=== PATIENT | female | born 1965 | race American Indian/Alaskan Native ===

== ENCOUNTER 2021-11-16 16:00 | Emergency (ER) | payer SELFPAY ==
[2021-11-16] MEDS ORDERED: ALUM-MAG HYDROXIDE-SIMETHICONE 200-200-20MG/5ML ORAL LIQD 30 ML PO ONE (17:56)
[2021-11-16] MEDS ORDERED: FAMOTIDINE 20 MG/2 ML INJ IV ONE (17:56)
[2021-11-16] MEDS ORDERED: SODIUM CHLORIDE 0.9% 1000 ML 1,000 ML IV ONE (17:56)
[2021-11-16] MEDS ORDERED: ONDANSETRON 4 MG/2 ML INJ IV ONE (17:56)
[2021-11-16] MEDS ORDERED: LIDOCAINE VISCOUS 2% 15 ML ORAL LIQD PO ONE (17:57)
[2021-11-16 18:32] LABS: Basophils % (Auto) 0.7 % (0.0-1.8); Eosinophils # (Auto) 0.3 K/mm3 (0.0-0.4); Eosinophils % (Auto) 6.6 % (0.0-4.3); Hematocrit 36.5 % (30.3-42.9); Hemoglobin 12.5 gm/dl (10.1-14.3); Lymphocytes # (Auto) 1.7 K/mm3 (1.2-5.4); Lymphocytes % (Auto) 38.8 % (13.4-35.0); Mean Corpuscular HGB Conc 34 % (30-34); Mean Corpuscular Volume 83 fl (79-97); Monocytes # (Auto) 0.4 K/mm3 (0.0-0.8); Monocytes % (Auto) 8.2 % (0.0-7.3); Platelet Count 179 K/mm3 (140-440); Red Blood Count 4.42 M/mm3 (3.65-5.03); Red Cell Distribution Width 13.9 % (13.2-15.2)
--- NOTE | 2021-11-16 18:34 | Emergency Department Report ---
ED Abdominal Pain HPI - General Chief Complaint: Abdominal Pain Stated Complaint: STOMACH PAIN Time Seen by Provider: 11/16/21 17:47 Source: patient, family (sudanese speaking daughter at bedside) Mode of arrival: Ambulatory Limitations: Language Barrier (pt does speak some sudanese) - History of Present Illness Initial Comments: 56-year-old female past medical history of gastric ulcers presents to the hospital with complaints worsening and chronic epigastric pain and pain with swallowing. Pain is worse when lying down at night. Patient states she was originally diagnosed with gastric ulcers in [place] 2003. Approximately 5 years ago she had endoscopy during the hospitalization in [place]. She is not currently taking any H2 blockers or PPIs. Complains of severe pain with swallowing resulting in decreased p.o. intake. Patient is able to tolerate liquids and pures better than solids but is still having difficulty secondary to pain. No reports of nausea, vomiting, or hematemesis. She states she always has dark stool because she eats a lot of green leafy vegetables. No previous abdominal surgeries reported. She just moved here from [place] 3 weeks ago Severity scale (0 -10): 9 - Related Data Previous Rx's Medication Instructions Recorded Last Taken Type Esomeprazole Magnesium [Nexium 20 mg PO DAILY #30 tab 11/16/21 Unknown Rx 24Hr] Mag Hydrox/Aluminum Hyd/Simeth 20 ml PO QID PRN #1 bottle 11/16/21 Unknown Rx [Maalox Advanced Suspension] Allergies Allergy/AdvReac Type Severity Reaction Status Date / Time No Known Allergies Allergy Unverified 11/16/21 16:05 ED Review of Systems ROS: Stated complaint: STOMACH PAIN Other details as noted in HPI Comment: All other systems reviewed and negative ED Past Medical Hx - Past Medical History Previous Medical History?: Yes Additional medical history: Gastric ulcers, Vaginal delivery x 7 - Surgical History Past Surgical History?: No - Medications Home Medications: Home Medications Medication Instructions Recorded Confirmed Last Taken Type Esomeprazole Magnesium [Nexium 20 mg PO DAILY #30 tab 11/16/21 Unknown Rx 24Hr] Mag Hydrox/Aluminum Hyd/Simeth 20 ml PO QID PRN #1 bottle 11/16/21 Unknown Rx [Maalox Advanced Suspension] ED Physical Exam - General Limitations: No Limitations - Other Other exam information: General: No acute distress Head: Atraumatic Eyes: normal appearance ENT: Moist mucous membranes Neck: Normal appearance, no midline tenderness Chest: Clear to auscultation bilaterally CV: Regular rate and rhythm Abdomen: Soft, normal bowel sounds, epigastric tenderness, nondistended, no rebound or guarding Back: Normal inspection Extremity: Normal inspection, full range of motion Neuro: Alert O x 3, no facial asymmetry, speech clear, no gross motor sensory deficit Psych: Appropriate behavior Skin: No rash ED Course Vital Signs 11/16/21 11/16/21 16:06 19:33 Temperature 97.8 F Pulse Rate 73 63 Respiratory 20 18 Rate Blood Pressure 155/76 [Left] Blood Pressure 135/77 [Right] O2 Sat by Pulse 100 96 Oximetry ED Medical Decision Making - Lab Data Result diagrams: 11/16/21 18:20 11/16/21 18:20 Lab Results 11/16/21 11/16/21 Range/Units 18:20 18:20 WBC 4.4 L (4.5-11.0) K/mm3 RBC 4.42 (3.65-5.03) M/mm3 Hgb 12.5 (10.1-14.3) gm/dl Hct 36.5 (30.3-42.9) % MCV 83 (79-97) fl MCH 28 (28-32) pg MCHC 34 (30-34) % RDW 13.9 (13.2-15.2) % Plt Count 179 (140-440) K/mm3 Lymph % (Auto) 38.8 H (13.4-35.0) % [place] % (Auto) 8.2 H (0.0-7.3) % Eos % (Auto) 6.6 H (0.0-4.3) % Baso % (Auto) 0.7 (0.0-1.8) % Lymph # (Auto) 1.7 (1.2-5.4) K/mm3 [place] # (Auto) 0.4 (0.0-0.8) K/mm3 Eos # (Auto) 0.3 (0.0-0.4) K/mm3 Baso # (Auto) 0.0 (0.0-0.1) K/mm3 Seg Neutrophils % 45.7 (40.0-70.0) % Seg Neutrophils # 2.0 (1.8-7.7) K/mm3 Sodium 140 (137-145) mmol/L Potassium 4.3 (3.6-5.0) mmol/L Chloride 101.9 (98-107) mmol/L Carbon Dioxide 29 (22-30) mmol/L Anion Gap 13 mmol/L BUN 15 (7-17) mg/dL Creatinine 1.0 (0.6-1.2) mg/dL Estimated GFR 57 ml/min BUN/Creatinine Ratio 15 % Glucose 86 (65-100) mg/dL Calcium 9.4 (8.4-10.2) mg/dL Total Bilirubin 0.20 (0.1-1.2) mg/dL AST 19 (5-40) units/L ALT 21 (7-56) units/L Alkaline Phosphatase 75 (35-129) units/L Total Protein 6.6 (6.3-8.2) g/dL Albumin 4.4 (3.9-5) g/dL Albumin/Globulin Ratio 2.0 % Lipase 45 (13-60) units/L - Medical Decision Making pt presents with epigastric pain and pain with swallowing (acute on chronic). feel better with ed tx of pepcid, maalox, lidocaine, and IVF. Dr Julian assisted with translation to explain diagnosis and plan for d/c with meds and f/u - Differential Diagnosis ulcer, gerd, esophageal spasm, Critical Care Time: No Critical care attestation.: If time is entered above; I have spent that time in minutes in the direct care of this critically ill patient, excluding procedure time. ED Disposition Clinical Impression: GERD (gastroesophageal reflux disease) Disposition: 01 HOME / SELF CARE / HOMELESS Is pt being admited?: No Does the pt Need Aspirin: No Condition: Stable Instructions: Abdominal Pain (ED), Gastroesophageal Reflux Disease, Adult, [id number]-[id number] Additional Instructions: Take the medication as prescribed. Follow-up with your doctor or doctor/clinic provided. Return if symptoms worsen as indicated by your discharge instructions. Prescriptions: Mag Hydrox/Aluminum Hyd/Simeth [Maalox Advanced Suspension] 20 ml PO QID PRN #1 bottle PRN Reason: Indigestion/Constipation Esomeprazole Magnesium [Nexium 24Hr] 20 mg PO DAILY #30 tab Referrals: [facility] [Provider Group] - 3-5 Days Time of Disposition: 21:09
[2021-11-16 18:54] LABS: Albumin 4.4 g/dL (3.9-5); Calcium 9.4 mg/dL (8.4-10.2)
[2021-11-16 21:43] VITALS: BP 150/77
== END 2021-11-16 21:49 | disposition home or self-care (01) ==
LOC: ED 16:00
DX: K21.9 Gastro-esophageal reflux disease without esophagitis (principal); Z79.899 Other long term (current) drug therapy
CPT/HCPCS: 36415; 80053; 83690; 85025; 96361; 96374; 96375; 99283; J2405; J3490; J7030

== ENCOUNTER 2022-03-15 15:16 | Emergency (ER) | payer SELFPAY ==
[2022-03-15 17:08] VITALS: BP 140/80
[2022-03-16] MEDS ORDERED: ACETAMINOPHEN 325 MG TAB PO ONE (01:16)
--- NOTE | 2022-03-16 01:22 | Emergency Department Report ---
ED Back Pain/Injury HPI - General Chief Complaint: Back Pain/Injury Stated Complaint: LEG PAIN, WAIST PAIN Time Seen by Provider: 03/16/22 01:07 Source: patient Limitations: No Limitations - History of Present Illness Initial Comments: Patient is a 56-year-old female who presents with low back pain for the last 2 months that is radiating to the bilateral lower extremities left greater than right. Denies any paresthesias or weakness but states the pain has been increasing over that time. And has become 8 out of 10 at this time. She has not been taking anything [id number] for it. Denies paresthesias or weakness of the extremities loss of continence of bladder or bowel. No abdominal pain. No urinary symptoms. Onset/Timin -: Gradual, month(s) Similar Symptoms Previously: No Radiation: left leg, right leg Severity: moderate Severity scale (0 -10): 8 Quality: stabbing Consistency: constant (With increases and decreases in severity) Improves With: none Worsens With: none (Denies trauma) Context: while lifting (Denies trauma but states that lifting bothers it.) Associated Symptoms: difficulty walking (Secondary to pain). denies: confusion, weakness, chest pain, numbness, cough, difficulty urinating, diaphoresis, incontinence, fever/chills, constipation, headaches, abdominal pain, loss of appetite, malaise, nausea/vomiting, rash, seizure, shortness of breath, syncope Treatments Prior to Arrival: other (None) - Related Data Previous Rx's Medication Instructions Recorded Last Taken Type Esomeprazole Magnesium [Nexium 20 mg PO DAILY #30 tab 11/16/21 Unknown Rx 24Hr] Mag Hydrox/Aluminum Hyd/Simeth 20 ml PO QID PRN #1 bottle 11/16/21 Unknown Rx [Maalox Advanced Suspension] Cyclobenzaprine [Flexeril 10 MG 10 mg PO HS PRN #10 tab 03/16/22 Unknown Rx TAB] Diclofenac 1% [Diclofenac 1% 20 applic TP BID #1 tube 03/16/22 Unknown Rx topical gel] Allergies Allergy/AdvReac Type Severity Reaction Status Date / Time No Known Allergies Allergy Verified 03/15/22 17:05 ED Review of Systems ROS: Stated complaint: LEG PAIN, WAIST PAIN Other details as noted in HPI Comment: Unobtainable due to pts medical conditions Constitutional: denies: chills, fever Eyes: denies: eye discharge ENT: denies: ear pain, throat pain Respiratory: denies: cough, shortness of breath Cardiovascular: denies: chest pain, palpitations, dyspnea on exertion, edema Endocrine: denies: excessive sweating, intolerance to cold, intolerance to heat, unexplained weight gain, unexplained weight loss Gastrointestinal: denies: abdominal pain, nausea, vomiting, diarrhea, constipation Genitourinary: denies: urgency, dysuria, frequency, hematuria Musculoskeletal: as per HPI Skin: denies: rash Neurological: denies: headache, weakness, numbness, paresthesias, confusion, abnormal gait, vertigo Psychiatric: denies: anxiety, depression Hematological/Lymphatic: denies: easy bleeding, easy bruising ED Past Medical Hx - Past Medical History Hx GERD: Yes Additional medical history: Gastric ulcers, Vaginal delivery x 7 - Family History Family history: no significant - Social History Smoking Status: Never Smoker - Medications Home Medications: Home Medications Medication Instructions Recorded Confirmed Last Taken Type Esomeprazole Magnesium [Nexium 20 mg PO DAILY #30 tab 11/16/21 Unknown Rx 24Hr] Mag Hydrox/Aluminum Hyd/Simeth 20 ml PO QID PRN #1 bottle 11/16/21 Unknown Rx [Maalox Advanced Suspension] Cyclobenzaprine [Flexeril 10 MG 10 mg PO HS PRN #10 tab 03/16/22 Unknown Rx TAB] Diclofenac 1% [Diclofenac 1% 20 applic TP BID #1 tube 03/16/22 Unknown Rx topical gel] ED Physical Exam - General Limitations: No Limitations General appearance: alert, in no apparent distress - Head Head exam: Present: atraumatic, normocephalic - Eye Eye exam: Present: normal appearance. Absent: scleral icterus, conjunctival injection - ENT ENT exam: Present: mucous membranes moist - Neck Neck exam: Present: normal inspection, full ROM. Absent: tenderness - Respiratory Respiratory exam: Present: normal lung sounds bilaterally. Absent: respiratory distress, wheezes, rales, rhonchi - Cardiovascular Cardiovascular Exam: Present: regular rate, normal rhythm, normal heart sounds - GI/Abdominal GI/Abdominal exam: Present: soft, normal bowel sounds. Absent: distended, tenderness - Extremities Exam Extremities exam: Present: normal inspection, full ROM, normal capillary refill. Absent: tenderness, pedal edema, calf tenderness - Back Exam Back exam: Present: normal inspection, full ROM, tenderness (Lumbosacral area diffusely and SI joints.). Absent: CVA tenderness (R), CVA tenderness (L) - Neurological Exam Neurological exam: Present: alert, oriented X3, CN II-XII intact, normal gait, motor sensory deficit, reflexes normal - Psychiatric Psychiatric exam: Present: normal affect, normal mood - Skin Skin exam: Present: warm, dry, intact ED Course Vital Signs 03/15/22 03/16/22 17:07 01:40 Temperature 98.1 F Pulse Rate 88 Respiratory 20 16 Rate Blood Pressure 140/80 [Right] O2 Sat by Pulse 100 Oximetry ED Medical Decision Making - Radiology Data Radiology results: image reviewed [facility] [address] [place] [address] XRay Report Signed Patient: SADIQ STEVENS MR# : [id number] : [id number] Acct:[id number] Age/Sex: 56 / F ADM Date: 03/15/22 Loc: ED Attending Dr: Ordering Physician: LISET RYAN Date of Service: 03/16/22 Procedure(s): XR spine lumbosacral 2-3V Accession Number(s): [id number] cc: LISET RYAN Fluoro Time In Minutes: LUMBAR SPINE 2 VIEWS INDICATION: Back pain. COMPARISON: No relevant prior imaging study available. FINDINGS: VERTEBRAE: No acute fracture. Normal alignment. DISC SPACES: No significant abnormality. FACET JOINTS: No significant abnormality. SOFT TISSUES: No significant abnormality. ADDITIONAL FINDINGS: No additional significant findings. IMPRESSION: 1. No acute findings. Signer Name: Kike Li MD Signed: 03/16/2022 2:25 AM Workstation Name: [id number] Transcribed By: MN Dictated By: Kike Li MD Electronically Authenticated By: Kike Li MD Signed Date/Time: 03/16/22224 DD/ 3 TD/TT: Print - Medical Decision Making New onset nontraumatic low back pain in a 56-year-old. X-ray performed mostly to rule out metastatic disease and there is no evidence of same. We will treat as soft tissue injury with anti-inflammatories muscle relaxers and close follow- up. Critical care attestation.: If time is entered above; I have spent that time in minutes in the direct care of this critically ill patient, excluding procedure time. ED Disposition Clinical Impression: Lumbar strain Disposition: 01 HOME / SELF CARE / HOMELESS Is pt being admited?: No Condition: Stable Instructions: Lumbar Sprain, Back Injury Prevention Additional Instructions: Anti-inflammatories muscle relaxers. Ice alternating with heat. Follow-up with primary care if not improving in 3 to 5 days. Prescriptions: Diclofenac 1% [Diclofenac 1% topical gel] 20 applic TP BID #1 tube Cyclobenzaprine [Flexeril 10 MG TAB] 10 mg PO HS PRN #10 tab PRN Reason: Spasms Referrals: ANMOL CHUN MD [Primary Care Provider] - 3-5 Days PAO FRY MD [Staff Physician] - 3-5 Days
--- NOTE | 2022-03-16 02:29 | XRay Report ---
LUMBAR SPINE 2 VIEWS INDICATION: Back pain. COMPARISON: No relevant prior imaging study available. FINDINGS: VERTEBRAE: No acute fracture. Normal alignment. DISC SPACES: No significant abnormality. FACET JOINTS: No significant abnormality. SOFT TISSUES: No significant abnormality. ADDITIONAL FINDINGS: No additional significant findings. IMPRESSION: 1. No acute findings. Signer Name: Kike iL MD Signed: 03/16/2022 2:25 AM Workstation Name: [id number]
== END 2022-03-16 04:44 | disposition home or self-care (01) ==
LOC: ED 15:16
DX: S39.012A Strain of muscle, fascia and tendon of lower back, initial encounter (principal); K21.9 Gastro-esophageal reflux disease without esophagitis; X58.XXXA Exposure to other specified factors, initial encounter; Y93.89 Activity, other specified; Y92.89 Other specified places as the place of occurrence of the external cause; Y99.8 Other external cause status
CPT/HCPCS: 72100; 99283